=== PATIENT | female | born 1980 | race Two or more races ===

== ENCOUNTER 2018-08-31 08:07 | Emergency (ER) | payer SELFPAY ==
[~2018-08-31] VITALS: Ht 154.9 cm; Wt 97.5 kg
[2018-08-31] MEDS ORDERED: NKM (08:18)
--- NOTE | 2018-08-31 08:20 | NUR ---
ED Nurse Note: Pt came into the ER with complaints of lower back pain since yesterday. Pt states that she was bending over to put a shoe on and thats when the pain started. Occurred at 1000 yesterday and took Motrin as well as hot packs. Rating the pain a 9/10. Non radiating. A + O x4. Ambulatory. Pt noted to have a slow gait.
[2018-08-31 08:21] VITALS: BP 140/75
[2018-08-31] MEDS ORDERED: ROBAXIN-750750 MG PO (08:43)
[2018-08-31] MEDS ORDERED: IBUPROFEN600 MG ORAL (08:43)
[2018-08-31] MEDS ORDERED: Norco 5mg/325mg tab ORAL ONE (08:45)
[2018-08-31] MEDS ORDERED: Ketorolac 60mg Inj IM ONE (08:45)
--- NOTE | 2018-08-31 08:49 | Emergency Room Report ---
History of Present Illness General Chief Complaint: Lower Back Pain or Injury Source: Patient Present Illness HPI Patient presents with complaints of low back pain reports that yesterday morning while she was having breakfast with her kids she was picking something up from the ground and as she bent over to belt picker she had increased pain To the lower back area bilaterally Patient had taken Motrin and reports that the discomfort still persist specifically when she leans forward Denies any neuropathy in her legs denies any bowel or urinary incontinence denies any fevers or chills denies any neuropathy pain is fairly well localized across the lower back region Denies any other fall or trauma Allergies: Coded Allergies: No Known Allergies (Unverified , 08/31/18) Patient History Past Medical History: see triage record Pertinent Family History: none Last Menstrual Period: 08/03/18 Now: No Reviewed Nursing Documentation: PMH: Agreed; PSxH: Agreed Nursing Documentation-PMH Past Medical History: No Stated History Review of Systems All Other Systems: negative except mentioned in HPI Physical Exam Vital Signs Date Time Temp Pulse Resp B/P (MAP) Pulse Ox O2 Delivery O2 Flow Rate FiO2 08/31/18 08:13 98.1 55 12 145/73 96 Room Air Sp02 EP Interpretation: reviewed, normal General Appearance: mild distress - In acute pain Head: normocephalic, atraumatic Eyes: bilateral eye PERRL, bilateral eye EOMI ENT: normal pharynx Neck: supple Respiratory: lungs clear, no retraction, no accessory muscle use Cardiovascular #1: regular rate, rhythm Gastrointestinal: non tender, soft Musculoskeletal: normal inspection, other - Equal strength upper and lower extremities, patient's back examination reveals discomfort paraspinal L4-L5, patient has a brace on Neurologic: alert, oriented x3, responsive, cutter machine III-XII nml as tested Skin: normal color, no rash Lymphatic: no adenopathy Medical Decision Making Diagnostic Impression: Primary Impression: Low back pain Additional Impression: back sprain ER Course Patient's clinical history and exam is consistent with low back strain/sprain other differential such as neurological Neurosurgical pathology entertained however patient has sensory intact and will have initial conservative Trial outpatient and return with any worsening symptoms Last Vital Signs Date Time Temp Pulse Resp B/P (MAP) Pulse Ox O2 Delivery O2 Flow Rate FiO2 08/31/18 08:21 98.0 88 22 140/75 97 Room Air Status: improved Disposition: HOME, SELF-CARE Condition: Improved Scripts Methocarbamol* (ROBAXIN-750*) 750 Mg Tablet 750 MG PO TID, #21 TAB 0 Refills Prov: HuangvanessaTez DO 08/31/18 Ibuprofen* (MOTRIN*) 600 Mg Tablet 600 MG ORAL Q8H PRN for For Pain, #20 TAB 0 Refills Prov: Tez Jones DO 08/31/18 Departure Forms: Return to Work Return to Work in (Days): 2 Return to Work Date: Sep 02, 2018 Patient Instructions: Lumbosacral Strain Additional Instructions: Patient is provided with the discharge instructions notified to follow up with primary doctor in the next 2-3 days otherwise return to the er with any worsening symptoms. Please note that this report is being documented using [employer] technology. This can lead to erroneous entry secondary to incorrect interpretation by the dictating instrument. Tez Jones DO Aug 31, 2018 08:49
[2018-08-31 08:52] VITALS: BP 130/75
--- NOTE | 2018-08-31 08:53 | NUR ---
ED Nurse Note: Discharge instructions given to pt. Answered all questions. Verbalized understanding. No acute distress noted. ID band removed. Left ER w/ steady gait and all belongings.
== END 2018-08-31 08:53 | disposition home or self-care (01) ==
LOC: EMR 08:50
DX: M54.5 Low back pain (principal); S33.5XXA Sprain of ligaments of lumbar spine, initial encounter; X50.1XXA Overexertion from prolonged static or awkward postures, initial encounter; Y92.89 Other specified places as the place of occurrence of the external cause
CPT/HCPCS: 96372; 99283